=== PATIENT | female | born 1975 | race Caucasian/White ===

== ENCOUNTER 2022-04-18 21:09 | Emergency (ER) | payer OTHER, SELFPAY ==
--- NOTE | ~2022-04-18 | XR_ITS ---
EXAMINATION: XR chest 2V DATE: 04/19/2022 01:08 INDICATION: Shortness of breath. Cough. TECHNIQUE: Frontal and lateral views of the chest were obtained. COMPARISON: None. FINDINGS: The chest demonstrates clear lungs without pneumonia, pleural effusion, or pneumothorax. Th e heart size is normal. IMPRESSION: 1. No acute cardiopulmonary disease. Reviewed, dictated and finalized at location A.
[2022-04-18 21:19] VITALS: BP 136/77; PULSE 107; RESP 18; TEMP 36.6; O2SAT 99
[2022-04-18] MEDS: ALBUTEROL SULFATE NEB 2.5 MG/3 ML INH 5 MG INHALATION (23:00)
[2022-04-18 23:03] VITALS: PULSE 75; RESP 20
[2022-04-18 23:07] LABS: Basophils Absolute Auto 0.1 K/mm3 (0.0-0.1); Basophils Percent Auto 0.6 % (0.2-1.2); Eosinophils Absolute Auto 0.3 K/mm3 (0-0.3); Eosinophils Percent Auto 2.3 % (0-4.4); Hemoglobin 14.2 g/dL (12.0-15.0); Immature Granulocyte Absolute 0.03 K/mm3 (0.00-0.031); Immature Granulocyte Percent A 0.3 % (0-0.5); Lymphocytes Absolute Auto 2.71 K/mm3 (0.9-3.2); Lymphocytes Percent Auto 25.4 % (18.3-44.2); Mean Corpuscular HGB Conc 34.6 g/dl (32-36); Mean Corpuscular Hemoglobin 30.8 pg (26-34); Mean Corpuscular Volume 88.9 fl (80-100); Mean Platelet Volume 9.9 fl (7.4-10.4); Monocytes Absolute Auto 0.7 K/mm3 (0.1-0.6); Monocytes Percent Auto 6.5 % (2.6-8.5); Neutrophils Percent Auto 64.9 % (45.5-73.1); Platelet Count Result 208 k/mm3 (150-375); Red Blood Count 4.61 M/mm3 (4.2-5.4); Red Cell Distribution Width 12.3 % (11.5-14.5); White Blood Count 10.7 K/mm3 (4.5-10.0)
[2022-04-18 23:14] LABS: Appearance Urine Clear (Clear); Bilirubin Urine 1+ (Negative); Blood Urine Negative (Negative); Color Urine Yellow (Yellow); Glucose Urine UA Negative (Negative); Ketones Urine Trace mg/dL (Negative); Leukocyte Esterase Ur Trace LEU/UL (Negative); Nitrate Urine Negative (Negative); Protein Urine Negative (Negative); Specific Grav Ur 1.025 (1.001-1.035)
[2022-04-18 23:18] VITALS: PULSE 81
[2022-04-18 23:18] LABS: Mucus Urine Rare /lpf; RBC Urine 0-2 /hpf (0-2); Squamous Epithelial Cell Urine Moderate /hpf (Few)
[2022-04-18 23:19] LABS: Alanine Aminotransferase 13 U/L (6-35); Albumin Level 4.5 g/dL (3.5-5.1); Alkaline Phosphatase 80 U/L (38-126); Anion Gap 5 mmol/L (8-16); Aspartate Amino Transferase 15 U/L (14-36); Bilirubin,Total 0.4 mg/dL (0.2-1.3); Blood Urea Nitrogen 12 mg/dL (7-17); Calcium 9.2 mg/dL (8.4-10.2); Carbon Dioxide 28 mmol/L (22-30); Chloride 106 mmol/L (98-107); Estimated CRCL calculation 95 ml/min; Estimated Glomerular Filt Rate > 60; Glucose 91 mg/dL (65-110); Potassium 3.8 mmol/L (3.4-5.0); Sodium 139 mmol/L (137-145)
[2022-04-18 23:24] LABS: Add Urine Microscopic? YES
[2022-04-18 23:48] LABS: SARS-CoV-2 RNA PCR Negative
--- NOTE | 2022-04-19 00:51 | ED.GENADULT ---
HPI - General Adult General Chief complaint: Shortness of Breath/Dyspnea Stated complaint: SOB Fatigue Time Seen by Provider: 04/18/22 22:23 History of Present Illness HPI narrative: 46-year-old female with history of asthma and is a current smoker with history of recurrent pneumonia presented to the emergency emergency department department for evaluation of generalized fatigue and cough. Patient had an outpatient CT scan of her abdomen and was found to have groundglass opacities. Patient did have a COVID test at home today that was negative. Her COVID test here was also negative. Related Data Home Medications Medication Instructions Recorded Confirmed omeprazole 20 mg tablet,delayed 20 mg PO BID 04/18/22 04/18/22 release Allergies Allergy/AdvReac Type Severity Reaction Status Date / Time Sulfa (Sulfonamide Allergy Rash Verified 04/18/22 22:56 Antibiotics) Review of Systems Review of Systems: CONSTITUTIONAL: Denies fever, chills, or sweats. EYES: Denies visual changes, redness, or discharge. ENT: Denies rhinorrhea, congestion, sore throat, or otalgia. CARDIOVASCULAR: Denies chest pain, palpitations, or edema. RESPIRATORY: See HPI GASTROINTESTINAL: Denies abdominal pain, nausea, vomiting, or diarrhea. GENITOURINARY: Denies dysuria or hematuria. SKIN: Denies rash or itching. MUSCULOSKELETAL: Denies back pain, joint pain, or myalgia. NEUROLOGIC: Denies headache, numbness, or weakness. Exam Narrative: APPEARANCE: Well appearing, no pain, no distress, well-nourished. HEAD: normocephalic, atraumatic. EYES: PERRLA/EOMI, conjunctivae clear. NOSE: Normal no drainage THROAT: Pharynx clear, no exudate. NECK: Supple. No adenopathy, no masses. RESPIRATORY: Some wheezing on inspiration. CARDIOVASCULAR: Regular rate and rhythm without murmurs rubs or gallops. ABDOMINAL: Soft, nontender, nondistended, normal bowel sounds MUSCULOSKELETAL: Moves all extremities. Strength/ROM intact, No edema, No calf tenderness. NEURO: Alert. Cranial nerves II through XII intact. Grossly intact SKIN: Warm, dry. Normal Color Course Course Emergency Course: Due to patient's history of recurrent pneumonia and history of smoking. Patient will be treated for an atypical pneumonia. Patient was treated with azithromycin emergency room. Patient will also be discharged with a Z-Trey. All questions concerns were addressed. Patient was comfortable with plan for discharge and close follow-up. Vital Signs Vital signs: Vital Signs Temperature 97.8 F 04/18/22 21:19 Pulse Rate 107 H 04/18/22 21:19 Respiratory Rate 18 04/18/22 21:19 Blood Pressure 136/77 04/18/22 21:19 Pulse Oximetry 99 04/18/22 21:19 Oxygen Delivery Room Air 04/18/22 21:19 Temperature 97.8 F 04/18/22 21:19 Pulse Rate 75 04/19/22 01:46 Respiratory Rate 20 04/19/22 01:46 Blood Pressure 112/67 04/19/22 01:46 Pulse Oximetry 97 04/19/22 01:46 Oxygen Delivery Room Air 04/18/22 23:05 Medical Decision Making Vital Signs Vital Signs: Vital Signs Temperature 97.8 F 04/18/22 21:19 Pulse Rate 107 H 04/18/22 21:19 Respiratory Rate 18 04/18/22 21:19 Blood Pressure 136/77 04/18/22 21:19 Pulse Oximetry 99 04/18/22 21:19 Oxygen Delivery Room Air 04/18/22 21:19 Temperature 97.8 F 04/18/22 21:19 Pulse Rate 75 04/19/22 01:46 Respiratory Rate 20 04/19/22 01:46 Blood Pressure 112/67 04/19/22 01:46 Pulse Oximetry 97 04/19/22 01:46 Oxygen Delivery Room Air 04/18/22 23:05 Lab Data Lab results reviewed: Yes I reviewed the patient's lab results. Result diagrams: 04/18/22 22:58 04/18/22 22:58 Labs: Lab Results 04/18/22 04/18/22 04/18/22 Range/Units 22:58 22:58 22:58 WBC 10.7 H (4.5-10.0) K/mm3 RBC 4.61 (4.2-5.4) M/mm3 Hgb 14.2 (12.0-15.0) g/dL Hct 41.0 (37.0-47.0) % MCV 88.9 (80-100) fl MCH 30.8 (26-34) pg MCHC 34.6 (32-36)
[2022-04-19 00:54] VITALS: BP 112/60; PULSE 81; RESP 20; O2SAT 98
[2022-04-19] MEDS: AZITHROMYCIN 250 MG TABLET 500 MG PO (00:55)
[2022-04-19 01:46] VITALS: BP 112/67; PULSE 75; RESP 20; O2SAT 97
== END 2022-04-19 01:47 | disposition home or self-care (01) ==
PROVIDERS: Emergency Provider Emergency Medicine; PCP Internal Medicine
DX: J18.9 Pneumonia, unspecified organism (principal); Z20.822 Contact with and (suspected) exposure to COVID-19
CPT/HCPCS: 36415; 71046; 80053; 81001; 81025; 85025; 94640; 99283; A9270; C9803; U0003; U0005

== ENCOUNTER 2022-08-16 18:34 | Emergency (ER) | payer OTHER, SELFPAY ==
--- NOTE | ~2022-08-16 | XR_ITS ---
EXAMINATION: XR chest 2V DATE: 08/16/2022 19:12 INDICATION: Shortness of breath. Heart palpitations. TECHNIQUE: Frontal and lateral views of the chest were obtained. COMPARISON: Chest 2 views 04/19/2022 FINDINGS: The chest demonstrates clear lungs without pneumonia, pleural effusion, or pneumothorax. Th e heart size is normal. IMPRESSION: 1. No acute cardiopulmonary disease. Reviewed, dictated and finalized at location A.
--- NOTE | 2022-08-16 18:39 | ECG_ITS ---
Measurements Intervals [place] Rate: 93 P: 39 SC: 137 QRS: 55 QRSD: 94 T: 53 QT: 340 QTc: 424 Interpretive Statements SINUS RHYTHM NORMAL ELECTROCARDIOGRAM NO PREVIOUS ECG AVAILABLE FOR COMPARISON Electronically Signed On 08-17-2022 13:54:44 CDT by Joe Calzada M.D.
[2022-08-16 18:50] VITALS: BP 129/71; PULSE 100; RESP 18; TEMP 37.6; O2SAT 97
[2022-08-16 18:50] LABS: Basophils Absolute Auto 0.1 K/mm3 (0.0-0.1); Basophils Percent Auto 0.9 % (0.2-1.2); Eosinophils Absolute Auto 0.2 K/mm3 (0-0.3); Eosinophils Percent Auto 3.2 % (0-4.4); Hematocrit 39.8 % (37.0-47.0); Hemoglobin 13.4 g/dL (12.0-15.0); Immature Granulocyte Absolute 0.03 K/mm3 (0.00-0.031); Immature Granulocyte Percent A 0.5 % (0-0.5); Lymphocytes Absolute Auto 0.49 K/mm3 (0.9-3.2); Lymphocytes Percent Auto 8.7 % (18.3-44.2); Mean Corpuscular HGB Conc 33.7 g/dl (32-36); Mean Corpuscular Hemoglobin 29.7 pg (26-34); Mean Corpuscular Volume 88.2 fl (80-100); Mean Platelet Volume 9.8 fl (7.4-10.4); Monocytes Absolute Auto 0.5 K/mm3 (0.1-0.6); Monocytes Percent Auto 8.2 % (2.6-8.5); Neutrophils Absolute Auto 4.4 K/mm3 (1.3-6.7); Neutrophils Percent Auto 78.5 % (45.5-73.1); Platelet Count Result 169 k/mm3 (150-375); Red Blood Count 4.51 M/mm3 (4.2-5.4); Red Cell Distribution Width 12.5 % (11.5-14.5); White Blood Count 5.6 K/mm3 (4.5-10.0)
[2022-08-16 19:02] LABS: Alanine Aminotransferase 18 U/L (6-35); Albumin Level 4.3 g/dL (3.5-5.1); Alkaline Phosphatase 75 U/L (38-126); Anion Gap 9 mmol/L (8-16); Aspartate Amino Transferase 19 U/L (14-36); Bilirubin,Total 0.4 mg/dL (0.2-1.3); Blood Urea Nitrogen 10 mg/dL (7-17); Calcium 9.5 mg/dL (8.4-10.2); Carbon Dioxide 24 mmol/L (22-30); Chloride 105 mmol/L (98-107); Estimated CRCL calculation 95 ml/min; Estimated Glomerular Filt Rate > 60; Glucose 100 mg/dL (65-110); Lipase 89 U/L (23-300); Potassium 3.9 mmol/L (3.4-5.0); Sodium 138 mmol/L (137-145)
[2022-08-16 19:05] LABS: Partial Thromboplastin Time 28.9 SECONDS (22.3-36.8); Prothrombin Time 13.2 Seconds (11.1-14.7)
[2022-08-16 19:13] LABS: Troponin I < 0.012 ng/mL (0.000-0.034)
--- NOTE | 2022-08-16 19:54 | PC.NURSE ---
received patient in room. patient states the last time she had tylenol was around 1700 patient states she has been febrile and has had a cough and felt short of breath. per patient home pulse ox was 89% noted to be 98-100 % here. however patient removed vitals equipment and did not want to leave them on.
--- NOTE | 2022-08-16 20:18 | ED.SOB ---
HPI - SOB/Dyspnea General Chief Complaint: Shortness of Breath/Dyspnea Stated Complaint: heart palpitations, low o2, Covid positive Time Seen by Provider: 08/16/22 19:51 History of Present Illness HPI Narrative: Patient is a 46-year-old female who presents ER with concerns for low oxygen saturation. Used a pulse oximeter that showed her oxygen saturation was 87% for about an hour. After talking to her PCPs office to recommend she come to the ER to be evaluated. Tested positive for COVID yesterday. She is having fevers and chills and body aches. She has generalized malaise. She has nonproductive cough. No alleviating factors. Patient has been vaccinated. Related Data Home Medications Medication Instructions Recorded Confirmed omeprazole 20 mg tablet,delayed 20 mg PO BID 04/18/22 04/18/22 release Allergies Allergy/AdvReac Type Severity Reaction Status Date / Time Sulfa (Sulfonamide Allergy Rash Verified 04/18/22 22:56 Antibiotics) Review of Systems Review of Systems: All systems reviewed & are unremarkable except as noted in HPI and below Constitutional: Constitutional: Reports chills, Reports fatigue and Reports fever(s) ENT: Denies nasal congestion and Denies sore throat Cardiovascular: Cardiovascular: Denies chest pain, Denies rapid heart rate and Denies radiating jaw, neck or arm pain Respiratory: Respiratory: Reports cough, Reports dyspnea and Denies wheezing Gastrointestinal: Gastrointestinal: Denies abdominal pain, Denies nausea and Denies vomiting Musculoskeletal: Musculoskeletal: Denies back pain and Reports myalgias PMFSH Past Medical History Medical History (Updated 08/16/22 @ 22:09 by Dustin Hong MD) Healthy female adult Surgical History Surgical History (Updated 08/16/22 @ 22:09 by Dustin Hong MD) History of gastric bypass Exam Narrative: GENERAL: Well-appearing, well-nourished, and in no acute distress. HEAD: Normocephalic, atraumatic. CHEST: Clear to auscultation. No respiratory distress. HEART: Regular rate and rhythm. Normal peripheral pulses. EXTREMITIES: Normal range of motion. No edema. SKIN: Warm, dry, no rash. NEURO: Alert and oriented x3. PSYCH: Normal mood and affect. Course Course Emergency Course: Ambulatory in the ER without hypoxia while on pulse oximeter. No pneumonia on chest x-ray. Discharge home. Vital Signs Vital signs: Vital Signs Temperature 99.7 F H 08/16/22 18:50 Pulse Rate 100 08/16/22 18:50 Respiratory Rate 18 08/16/22 18:50 Blood Pressure 129/71 08/16/22 18:50 Pulse Oximetry 97 08/16/22 18:50 Oxygen Delivery Room Air 08/16/22 18:50 Temperature 99.7 F H 08/16/22 18:50 Pulse Rate 100 08/16/22 18:50 Respiratory Rate 18 08/16/22 18:50 Blood Pressure 129/71 08/16/22 18:50 Pulse Oximetry 97 08/16/22 18:50 Oxygen Delivery Room Air 08/16/22 18:50 MDM - SOB/Dyspnea Lab Data Result diagrams: 08/16/22 18:42 08/16/22 18:42 Labs: Lab Results 08/16/22 08/16/22 08/16/22 Range/Units 18:42 18:42 18:42 WBC 5.6 (4.5-10.0) K/mm3 RBC 4.51 (4.2-5.4) M/mm3 Hgb 13.4 (12.0-15.0) g/dL Hct 39.8 (37.0-47.0) % MCV 88.2 (80-100) fl MCH 29.7 (26-34) pg MCHC 33.7 (32-36) g/dl RDW 12.5 (11.5-14.5) % Plt Count 169 (150-375) k/mm3 MPV 9.8 (7.4-10.4) fl Immature Gran % (Auto) 0.5 (0-0.5) % Neut % (Auto) 78.5 H (45.5-73.1) % Lymph % (Auto) 8.7 L (18.3-44.2) % [place] % (Auto) 8.2 (2.6-8.5) % Eos % (Auto) 3.2 (0-4.4) % Baso % (Auto) 0.9 (0.2-1.2) % Lymph # (Auto) 0.49 L (0.9-3.2) K/mm3 [place] # (Auto) 0.5 (0.1-0.6) K/mm3 Eos # (Auto) 0.2 (0-0.3) K/mm3 Baso # (Auto) 0.1 (0.0-0.1) K/mm3 Abs Immat Gran (auto) 0.03 (0.00-0.031) K/mm3 Absolute Neuts (auto) 4.4 (1.3-6.7) K/mm3 Absolute Nucleated RBC 0.0 (0.0-0.012) K/mm3 Nucleated RBC % 0.0 (0.0-0.2) %
== END 2022-08-16 20:58 | disposition home or self-care (01) ==
LOC: ANHED 20:24
PROVIDERS: Emergency Medicine; Emergency Provider Emergency Medicine; PCP Internal Medicine
DX: U07.1 COVID-19 (principal); Z98.84 Bariatric surgery status
CPT/HCPCS: 36415; 71046; 80053; 83690; 84484; 85025; 85610; 85730; 93005; 99284

== ENCOUNTER 2022-12-31 07:15 | Emergency (ER) | payer OTHER, SELFPAY ==
--- NOTE | ~2022-12-31 | CT_ITS ---
EXAMINATION: CT soft tissue neck w con DATE: 12/31/2022 09:16 INDICATION: Right face swelling. TECHNIQUE: Computed tomography (CT) of the neck was performed with 75 mL Omnipaque-350 intravenous co ntrast. Automated exposure control and iterative reconstruction technique were employed. The dose-loni gth product was 572.55 mGy-cm. COMPARISON: None FINDINGS: The right parotid gland is asymmetrically enlarged with adjacent fat stranding, consistent with parotiditis. No sialolith. There are no pathologically enlarged lymph nodes. There are nodules i n the thyroid measuring up to 12 mm, likely not clinically significant. There is focal subcutaneous f at stranding in right posterior superior chest, likely inflammation. The cervical carotid arteries ar e normal. There is minimal mucosal thickening in the paranasal sinuses. There is mild cervical spondy losis. There is anterior and posterior fusion at C6-C7. IMPRESSION: 1. Right-sided parotiditis. Reviewed, dictated and finalized at location D. [employer] IMPRESSION: 1. Right-sided parotiditis.
[2022-12-31 07:19] VITALS: BP 130/66; PULSE 79; RESP 14; TEMP 36.7; O2SAT 100
[2022-12-31 07:59] VITALS: RESP 18
[2022-12-31 08:55] LABS: Estimated CRCL calculation 108 ml/min; Estimated Glomerular Filt Rate > 60
--- NOTE | 2022-12-31 08:56 | ED.GENADULT ---
HPI - General Adult General Chief complaint: Unspecified Stated complaint: R side facial swelling Time Seen by Provider: 12/31/22 07:58 History of Present Illness HPI narrative: Patient is a 47-year-old female who presents ER with right-sided facial swelling. Sudden onset this morning while driving. Was having pain around her cheek near her ear. [place] like she is having some trouble swallowing. Symptoms are improving since arriving at the ER. Patient took no medications this morning she was only drinking coffee. Patient has no known drug allergies other than a rash from sulfa. Denies fevers or chills or sweats. Denies trauma. She reports she was speaking with her mother who had a similar experience and had passed a salivary duct stone. Related Data Home Medications Medication Instructions Recorded Confirmed omeprazole 20 mg tablet,delayed 20 mg PO BID 04/18/22 04/18/22 release Allergies Allergy/AdvReac Type Severity Reaction Status Date / Time Sulfa (Sulfonamide Allergy Rash Verified 12/31/22 08:03 Antibiotics) Review of Systems Constitutional: Constitutional: Denies chills and Denies fever(s) ENT: Denies dental pain, Reports dysphagia, Reports facial pain (parotid tenderness), Denies lip swelling, Denies nasal congestion and Denies tongue swelling PMFSH Past Medical History Medical History (Updated 12/31/22 @ 09:52 by Dustin Hong MD) Healthy female adult Surgical History Surgical History (Updated 08/16/22 @ 22:09 by Dustin Hong MD) History of gastric bypass Exam Narrative: GENERAL: Well-appearing, well-nourished, and in no acute distress. HEAD: Normocephalic, atraumatic. EYES: PERRL and EOMI. ENT: Mucous membranes moist. Mild swelling of the right cheek over the parotid with tenderness. No redness. No trismus. No swelling to the tonsils/uvula/tongue/lip. No dental tenderness or abscess identified. NECK: Supple. CHEST: Clear to auscultation. No respiratory distress. Normal phonation. HEART: Regular rate and rhythm. Normal peripheral pulses. NEURO: Alert and oriented x3. PSYCH: Normal mood and affect. Course Course Emergency Course: Patient's pain and swelling has improved. Informed of imaging results. Suspect she passed the salivary stone. Patient without purulent drainage in mouth. Will be started on oral Augmentin and given ENT follow-up. Discussed return precautions and treatment plan and patient verbalized understanding. Vital Signs Vital signs: Vital Signs Temperature 98.1 F 12/31/22 07:19 Pulse Rate 79 12/31/22 07:19 Respiratory Rate 14 12/31/22 07:19 Blood Pressure 130/66 12/31/22 07:19 Pulse Oximetry 100 12/31/22 07:19 Oxygen Delivery Room Air 12/31/22 07:19 Temperature 98.1 F 12/31/22 07:19 Pulse Rate 79 12/31/22 07:19 Respiratory Rate 18 12/31/22 07:59 Blood Pressure 130/66 12/31/22 07:19 Pulse Oximetry 100 12/31/22 07:19 Oxygen Delivery Room Air 12/31/22 07:19 Medical Decision Making Vital Signs Vital Signs: Vital Signs Temperature 98.1 F 12/31/22 07:19 Pulse Rate 79 12/31/22 07:19 Respiratory Rate 14 12/31/22 07:19 Blood Pressure 130/66 12/31/22 07:19 Pulse Oximetry 100 12/31/22 07:19 Oxygen Delivery Room Air 12/31/22 07:19 Temperature 98.1 F 12/31/22 07:19 Pulse Rate 79 12/31/22 07:19 Respiratory Rate 18 12/31/22 07:59 Blood Pressure 130/66 12/31/22 07:19 Pulse Oximetry 100 12/31/22 07:19 Oxygen Delivery Room Air 12/31/22 07:19 Lab Data 12/31/22 08:33 Labs: Lab Results 12/31/22 Range/Units 08:33 Creatinine 0.60 L (0.7-1.0) mg/dL Estim Creat Clear Calc 108 ml/min Estimated GFR > 60 (59 - ) UCG Bedside Result Negative Reference Range: Negative Imaging Data Radiologist's impression: ITS Impressions Soft Tissue Neck CT 12/31/22
[2022-12-31 10:10] VITALS: BP 114/73; PULSE 73; RESP 18; O2SAT 100
== END 2022-12-31 10:10 | disposition home or self-care (01) ==
PROVIDERS: Emergency Provider Emergency Medicine; PCP Internal Medicine
DX: K11.21 Acute sialoadenitis (principal)
CPT/HCPCS: 36415; 70491; 81025; 82565; 99284; Q9967